=== PATIENT | female | born 2000 | race Caucasian/White ===

== ENCOUNTER 2022-01-23 16:13 | Emergency (ER) | payer OTHER ==
[2022-01-23 16:39] VITALS: BP 100/62; PULSE 63; TEMP 97.9; BMI 27.1
== END 2022-01-23 18:35 | disposition home or self-care (01) ==
LOC: JERFT 16:13
DX: M79.672 Pain in left foot (principal); W20.8XXA Other cause of strike by thrown, projected or falling object, initial encounter
CPT/HCPCS: 73630-TC-LT; 99283-25